=== PATIENT | male | born 1995 | race Caucasian/White ===

== ENCOUNTER 2019-11-21 10:09 | Emergency (ER) | payer MEDICAID ==
[~2019-11-21] VITALS: Ht 175.3 cm; Wt 80.3 kg
[2019-11-21 10:15] VITALS: Ht 175.3 cm; Wt 80.3 kg
[2019-11-21 11:45] VITALS: BP 118/79
== END 2019-11-21 11:45 | disposition home or self-care (01) ==
LOC: ED 10:09
DX: S61.210A Laceration without foreign body of right index finger without damage to nail, initial encounter (principal); W31.2XXA Contact with powered woodworking and forming machines, initial encounter; Y93.89 Activity, other specified; Y92.89 Other specified places as the place of occurrence of the external cause; Y99.8 Other external cause status
CPT/HCPCS: J2001